=== PATIENT | female | born 2000 | race Caucasian/White ===

== ENCOUNTER → 2023-03-25 | Outpatient (CLI) | payer BC ==
[2023-03-25 11:39] LABS: HEMATOCRIT 43.9 % (37.0-47.0); MEAN CELL VOLUME 89.8 fl (81.0-99.0); MEAN CORPUSCULAR HGB CONC 32.3 g/dl (33.0-37.0); PLATELET COUNT AUTOMATED 262 10*3/uL (130-400); RED BLOOD COUNT 4.89 10*6/uL (4.10-5.10); RED CELL DISTRI WIDTH 13.3 % (0-14.5); RETICULOCYTE % 1.04 % (0.50-2.50)
[2023-03-25 11:43] LABS: BILIRUBIN Negative (Negative); BLOOD Trace-Intact (Negative); CLARITY Turbid (Clear); COLOR Yellow (Yellow); GLUCOSE Negative (Negative); KETONE Trace (Negative); LEUKO ESTERASE 2+ (Negative); NITRITE Negative (Negative); PH 5.5 (4.5-8.0); SPECIFIC GRAVITY 1.025 (1.001-1.030)
[2023-03-25 12:14] LABS: BACTERIA 2+; EPITHELIAL CELLS TNTC
[2023-03-25 12:19] LABS: ALKALINE PHOSPHATASE 50 U/L (46-116); BUN 5 mg/dl (9-23); CHLORIDE 107 mmol/L (98-107); CHOLESTEROL 120 mg/dL (<200); GAMMA GLUTAMYL TRANSPEPTIDASE 23 U/L (0-73); LDL CHOLESTEROL 60 mg/dL (9-159); POTASSIUM 3.9 mmol/L (3.4-5.1); SGPT/ALT 25 U/L (10-49); T3 UPTAKE 25.1 % (22.4-36.7); THYROID STIM HORMONE (HS) 1.266 uIU/ml (0.550-4.780); THYROXINE (T4) TOTAL 7.5 ug/dl (4.5-10.9); TOTAL PROTEIN 7.2 gm/dL (6.0-8.0); TRIGLYCERIDES 120 mg/dl (<150); URIC ACID 6.1 mg/dL (3.1-7.8)
[2023-03-25 12:27] LABS: BASOPHILS 1 % (0-1); TOTAL CELLS COUNTED 100 #CELLS
[2023-03-25 12:28] LABS: PLATELET SUFFICIENCY NORMAL (NORMAL)
[2023-03-25 12:46] LABS: VITAMIN D, 25-HYDROXY 27.9 ng/mL (30-100)
[2023-03-26 03:06] LABS: TOTAL PROTEIN, SERUM 6.7 g/dL (6.0-8.5)
[2023-03-28 13:06] LABS: A/G RATIO 1.2 (0.7-1.7); ALBUMIN 3.6 g/dL (2.9-4.4); ALPHA-1-GLOBULIN 0.2 g/dL (0.0-0.4); ALPHA-2-GLOBULIN 0.8 g/dL (0.4-1.0); ANTI-DSDNA ANTIBODIES <1 IU/mL (0-9); BETA GLOBULIN 1.1 g/dL (0.7-1.3); GLOBULIN, TOTAL 3.1 g/dL (2.2-3.9); M-SPIKE Not Observed g/dL (Not Observed)
== END | disposition home or self-care (01) ==
LOC: LAB 11:16
PROVIDERS: ATTEND Family Medicine
DX: E78.5 Hyperlipidemia, unspecified (principal); E55.9 Vitamin D deficiency, unspecified; R79.89 Other specified abnormal findings of blood chemistry; R53.83 Other fatigue; R74.8 Abnormal levels of other serum enzymes

== ENCOUNTER 2024-11-11 15:38 | Emergency (ER) | payer OTHER ==
[~2024-11-11] VITALS: Ht 177.8 cm; Wt 108.9 kg
[2024-11-11] MEDS ORDERED: JUNEL FE 1 MG-1 EACH PO (16:04)
[2024-11-11 16:16] LABS: BASO # 0.1 10*3/uL (0.0-0.1); BASO % 0.4 % (0.0-1.0); EOS # 0.1 10*3/uL (0.0-0.4); EOS % 0.6 % (1.0-4.0); HEMATOCRIT 44.4 % (37.0-47.0); MEAN CELL VOLUME 90.2 fl (81.0-99.0); MEAN CORPUSCULAR HGB 28.9 pg (27.0-31.0); MONO # 0.6 10*3/uL (0.1-1.0); MONO % 5.5 % (3.0-9.0); NEUT # 7.1 10*3/uL (2.3-7.9); NEUT % 62.1 % (47.0-73.0); PLATELET COUNT AUTOMATED 302 10*3/uL (130-400); RED BLOOD COUNT 4.92 10*6/uL (4.10-5.10); RED CELL DISTRI WIDTH 13.4 % (0-14.5); WHITE BLOOD COUNT 11.4 10*3/uL (4.8-10.8)
[2024-11-11 16:29] LABS: BILIRUBIN Negative (Negative); BLOOD Negative (Negative); CLARITY Cloudy (Clear); COLOR Dark Yellow (Yellow); GLUCOSE Negative (Negative); KETONE Trace (Negative); LEUKO ESTERASE 3+ (Negative); NITRITE Negative (Negative); PH 5.5 (4.5-8.0); SPECIFIC GRAVITY 1.025 (1.001-1.030)
[2024-11-11 16:36] LABS: BACTERIA 2+; EPITHELIAL CELLS 21-30; URINE AMPHETAMINES Negative (1000ng/ml); URINE BARBITURATES Negative (200ng/ml); URINE BENZODIAZEPINES Negative (200ng/ml); URINE CANNABINOIDS (THC) Positive (50ng/ml); URINE COCAINE Negative (300ng/ml); URINE METHADONE Negative (300ng/ml); URINE OPIATES Negative (300ng/ml); URINE PHENCYCLIDINE Negative (25ng/ml); WBC 21-30 wbc/hpf (0-5)
[2024-11-11 16:44] LABS: ALKALINE PHOSPHATASE 44 U/L (46-116); CHLORIDE 106 mmol/L (98-107); CPK 38 U/L (34-171); SGPT/ALT 31 U/L (5-49); TOTAL PROTEIN 7.3 gm/dL (6.0-8.0)
[2024-11-11 16:45] LABS: BUN < 5 mg/dl (9-23); ETHYL ALCOHOL < 3.0 mg/dl (<3)
[2024-11-11] MEDS ORDERED: Fosfomycin Tromethamine 3 GM PDS PO ONE (17:15)
[2024-11-11] MEDS ORDERED: FLUCONAZOLE 150 MG TAB PO ONE (20:05)
== END 2024-11-11 20:35 | disposition home or self-care (01) ==
LOC: ED 15:38
PROVIDERS: Nurse Practitioner Family
DX: F43.23 Adjustment disorder with mixed anxiety and depressed mood (principal); N39.0 Urinary tract infection, site not specified; Z88.6 Allergy status to analgesic agent; Z88.5 Allergy status to narcotic agent; Z79.899 Other long term (current) drug therapy

== ENCOUNTER → 2025-08-07 | Outpatient (CLI) | payer BC ==
[~2025-08-07] MED LIST: JUNEL FE 1 MG-1 EACH PO
[2025-08-07 12:58] LABS: MEAN CELL VOLUME 87.3 fl (81.0-99.0); MEAN CORPUSCULAR HGB 28.6 pg (27.0-31.0); MEAN PLATELET VOLUME 9.1 fl (9.6-12.3); NUCLEATED RED BLOOD CELL 0.0 % (0.0-0.0); NUCLEATED RED BLOOD CELL 0.0 10*3/uL (0.0-0.0); PLATELET COUNT AUTOMATED 353 10*3/uL (130-400); RED CELL DISTRI WIDTH 13.2 % (0-14.5); RETICULOCYTE % 1.70 % (0.50-2.50)
[2025-08-07 13:06] LABS: BILIRUBIN 1+ (Negative); BLOOD 3+ (Negative); CLARITY Cloudy (Clear); COLOR Dark Yellow (Yellow); KETONE 1+ (Negative); LEUKO ESTERASE 1+ (Negative); NITRITE Negative (Negative); PH 5.5 (4.5-8.0); SPECIFIC GRAVITY >= 1.030 (1.001-1.030); UROBILINOGEN 1.0 E.U./dl (0.0-1.0)
[2025-08-07 13:18] LABS: BACTERIA 3+; EPITHELIAL CELLS 21-30; MUCOUS 2+; RBC 21-30 rbc/hpf (0-2); WBC 16-20 wbc/hpf (0-5)
[2025-08-07 13:33] LABS: MANUAL DIFF REFLEX YES
[2025-08-07 13:36] LABS: BASOPHILS 1 % (0-1); PLATELET SUFFICIENCY NORMAL (NORMAL)
[2025-08-07 13:51] LABS: BUN 11 mg/dl (9-23); GAMMA GLUTAMYL TRANSFERASE 59 U/L (0-38); LDL CHOLESTEROL 73 mg/dL (9-159); SGPT/ALT 69 U/L (5-49); T3 UPTAKE 33.4 % (22.4-36.7); THYROXINE (T4) TOTAL 13.3 ug/dl (4.5-10.9); VITAMIN D, 25-HYDROXY 28.8 ng/mL (30-100)
== END | disposition home or self-care (01) ==
LOC: LAB 12:03 → US 14:00
PROVIDERS: ATTEND Family Medicine
DX: E04.1 Nontoxic single thyroid nodule (principal); R06.02 Shortness of breath; E04.9 Nontoxic goiter, unspecified; E78.5 Hyperlipidemia, unspecified; E55.9 Vitamin D deficiency, unspecified; R53.83 Other fatigue; R79.89 Other specified abnormal findings of blood chemistry

== ENCOUNTER → 2025-09-06 | Outpatient (CLI) | payer BC ==
[2025-09-06 14:17] LABS: BASO # 0.1 10*3/uL (0.0-0.1); BASO % 0.6 % (0.0-1.0); EOS # 0.3 10*3/uL (0.0-0.4); EOS % 3.5 % (1.0-4.0); MEAN CELL VOLUME 89.1 fl (81.0-99.0); MEAN CORPUSCULAR HGB 29.3 pg (27.0-31.0); MEAN PLATELET VOLUME 8.7 fl (9.6-12.3); MONO # 0.6 10*3/uL (0.1-1.0); MONO % 5.9 % (3.0-9.0); NEUT # 5.0 10*3/uL (2.3-7.9); NEUT % 52.5 % (47.0-73.0); NUCLEATED RED BLOOD CELL 0.0 % (0.0-0.0); NUCLEATED RED BLOOD CELL 0.0 10*3/uL (0.0-0.0); PLATELET COUNT AUTOMATED 308 10*3/uL (130-400); RED CELL DISTRI WIDTH 13.2 % (0-14.5)
[2025-09-06 14:39] LABS: BUN 8 mg/dl (9-23); LDH 86 U/L (120-246); SGPT/ALT 39 U/L (5-49)
== END | disposition home or self-care (01) ==
LOC: LAB 13:14
PROVIDERS: Family Medicine; ATTEND Internal Medicine Medical Oncology
DX: D72.820 Lymphocytosis (symptomatic) (principal)

== ENCOUNTER → 2025-09-14 | Outpatient (CLI) | payer BC | END | disposition home or self-care (01) | LOC: US 00:06 | PROVIDERS: ATTEND Family Medicine | DX: N85.4 Malposition of uterus (principal); R10.84 Generalized abdominal pain; R10.23 Pelvic and perineal pain bilateral; Z90.49 Acquired absence of other specified parts of digestive tract ==

== ENCOUNTER → 2025-09-20 | Outpatient (CLI) | payer BC ==
[~2025-09-20] MED LIST changes: +IOHEXOL 300 MG/ML 100 ML VIAL IV ONE
== END | disposition home or self-care (01) ==
LOC: CT 01:58
PROVIDERS: ATTEND Internal Medicine Medical Oncology
DX: K57.30 Diverticulosis of large intestine without perforation or abscess without bleeding (principal); D72.820 Lymphocytosis (symptomatic); R61 Generalized hyperhidrosis; R59.0 Localized enlarged lymph nodes